=== PATIENT | female | born 1995 | race Caucasian/White ===

== ENCOUNTER 2018-02-14 21:32 | Emergency (ER) | payer SELFPAY ==
[~2018-02-14] VITALS: Ht 149.9 cm; Wt 48.4 kg
[2018-02-14 22:57] LABS: HEMATOCRIT 32.3 % (36.0-46.0); HEMOGLOBIN 11.2 G/DL (11.9-15.5); MCH 29.2 PG (29.0-34.0); MCHC 34.7 G/DL (30.0-36.0); MCV 84.1 FL (83-99); PLATELET COUNT 246 K/uL (156-360); RBC DIS.WIDTH-CV 15.2 % (11.8-14.6); RBC DIS.WIDTH-SD 46.6 % (39-53); RED BLOOD COUNT 3.84 M/uL (3.80-5.20); WHITE BLOOD COUNT 13.1 K/uL (4.1-10.2)
[2018-02-14 23:08] LABS: CHLORIDE 104 mEq/L (99-109); SODIUM 141 mEq/L (136-147)
[2018-02-14 23:10] LABS: GLUCOSE 110 mg/dL (70-99)
[2018-02-14 23:13] LABS: SERUM ETHYL ALCOHOL < 10 mg/dL
[2018-02-14 23:14] LABS: CREATININE 0.8 mg/dL (0.6-1.3)
[2018-02-14 23:15] LABS: UREA NITROGEN (BUN) 15 mg/dL (9-23)
[2018-02-14 23:20] LABS: GFR ESTIMATE (CALCULATED) > 59 mL/min/
[2018-02-14 23:24] LABS: QUANTITATIVE HCG < 4.0 MIU/ML
[2018-02-15 00:13] LABS: COCAINE PRESUMPTIVE POSITIVE (150 ng/mL); PHENCYCLIDINE NEGATIVE (25 ng/mL); THC CANNABINOIDS PRESUMPTIVE POSITIVE (50 ng/mL)
[2018-02-15 00:14] LABS: AMPHETAMINE NEGATIVE (500 ng/mL); BARBITURATES NEGATIVE (200 ng/mL); BENZODIAZEPINES NEGATIVE (150 ng/mL); BUPRENORPHINE NEGATIVE (10 ng/mL); METHADONE PRESUMPTIVE POSITIVE (200 ng/mL); METHAMPHETAMINE NEGATIVE (500 ng/mL); OPIATES (MORPHINE) PRESUMPTIVE POSITIVE (100 ng/mL); OXYCODONE NEGATIVE (100 ng/mL); PROPOXYPHENE NEGATIVE (300 ng/mL); TRICYCLIC ANTIDEPRESSANTS NEGATIVE (300 ng/mL)
[2018-02-15 02:09] LABS: ERTH.SED.RATE 70 MM/HR (0-20)
[2018-02-15] MEDS ORDERED: MOTRIN800 MG PO (02:20)
[2018-02-15 02:57] VITALS: BP 112/56
== END 2018-02-15 03:17 | disposition home or self-care (01) ==
LOC: EME 21:32
DX: F19.229 Other psychoactive substance dependence with intoxication, unspecified (principal); M79.671 Pain in right foot; M79.672 Pain in left foot; E87.6 Hypokalemia; G62.9 Polyneuropathy, unspecified; S80.12XA Contusion of left lower leg, initial encounter; S80.11XA Contusion of right lower leg, initial encounter; S40.022A Contusion of left upper arm, initial encounter; S40.021A Contusion of right upper arm, initial encounter; F17.200 Nicotine dependence, unspecified, uncomplicated; Z86.14 Personal history of Methicillin resistant Staphylococcus aureus infection
CPT/HCPCS: 73630; 80048; 84702; 84999; 85027; 85651; 90839; 99281; 99285; G0480